=== PATIENT | male | born 1995 | race Hispanic/Latino ===

== ENCOUNTER 2018-01-31 23:48 | Emergency (ER) | payer SELFPAY ==
[2018-02-01 00:17] LABS: Absolute Lymphocytes (CBC) 3.2 K/uL (0.7-4.9); Absolute Neutrophil 8.3 K/uL (1.8-8.0); Basophils % 0.3 % (0-1.3); Eosinophils % 0.5 % (0-4.4); Hematocrit 47.7 % (39.6-49.0); Lymphocytes % 25.1 % (15.3-44.8); MCH 31.4 pg (27.0-35.0); MCV 91.6 fL (80-100); MPV 8.6 fL (7.6-11.3); Monocytes % 8.2 % (3.3-12.3)
[2018-02-01 00:23] LABS: Protime INR 1.1
[2018-02-01 00:37] LABS: ALT/SGPT 33 U/L (12-78); AST/SGOT 22 U/L (15-37); Albumin 4.3 g/dL (3.4-5.0); Alkaline Phosphatase 69 U/L (45-117); BUN Blood Urea Nitrogen 11 mg/dL (7-18); Bicarbonate 23 mmol/L (21-32); Bilirubin Direct 0.2 mg/dL (0-0.2); Bilirubin Total 0.9 mg/dL (0.2-1.0); CKMB Creatine Kinase MB 1.1 ng/mL (0.3-3.6); Creatine Phosphokinase 263 U/L (39-308); Glucose Level 81 mg/dL (74-106); Magnesium 1.9 mg/dL (1.8-2.4); NT PRO-BNP 21 pg/mL (<125); Potassium 3.7 mmol/L (3.5-5.1); Protein, Total 7.8 g/dL (6.4-8.2); Sodium Level 139 mmol/L (136-145)
[2018-02-01] MEDS ORDERED: ASPIRIN 81 MG CHEWABLE TABLET ONE (00:48)
--- NOTE | 2018-02-01 02:20 | EDPHYS ---
Physician Documentation [facility] Name: Juan Braswell Age: 22 yrs Sex: Male : 1995 Arrival Date: 01/31/2018 Time: 23:50 Bed 5 Private MD: ED Physician Alireza Neff HPI: 02/01 00:01 This 22 yrs old Male presents to ER via Law Enforcement with complaints of cp Chest Pain. 00:01 Onset: The symptoms/episode began/occurred today, episode \T\1700 today and then again cp \T\2200. Associated signs and symptoms: Pertinent negatives: abdominal pain, constipation, cough, diarrhea, fever, vomiting. Patient admits to last use of cocaine 3 days ago. Historical: - Allergies: 01/31 23:51 No Known Allergies; bp - Home Meds: 23:51 None [Active]; bp - PMHx: 23:51 None; bp - Immunization history:: Adult Immunizations up to date. - Social history:: Smoking status: Patient uses tobacco products, unknown amount. - Ebola Screening: : Patient negative for fever greater than or equal to 101.5 degrees Fahrenheit, and additional compatible Ebola Virus Disease symptoms Patient denies exposure to infectious person Patient denies travel to an Ebola-affected area in the 21 days before illness onset No symptoms or risks identified at this time. ROS: 02/01 00:05 Constitutional: Negative for body aches, chills, fever, poor PO intake. cp 00:05 Eyes: Negative for injury, pain, redness, and discharge. cp 00:05 ENT: Negative for drainage from ear(s), ear pain, sore throat, difficulty swallowing, difficulty handling secretions. 00:05 Cardiovascular: Positive for chest pain, of the left side of chest, Negative for edema, palpitations. 00:05 Respiratory: Negative for cough, shortness of breath, wheezing. 00:05 Abdomen/GI: Negative for abdominal pain, nausea, vomiting, and diarrhea, black/tarry stool, rectal bleeding. 00:05 Back: Negative for pain at rest, pain with movement, radiated pain. 00:05 Skin: Negative for cellulitis, rash. 00:05 Neuro: Negative for altered mental status, headache, weakness. 00:05 All other systems are negative. Exam: 00:10 Constitutional: The patient appears in no acute distress, alert, awake, cp non-diaphoretic, non-toxic, well developed, well nourished. 00:10 Head/Face: Normocephalic, atraumatic. Eyes: Pupils equal round and reactive to light, cp extra-ocular motions intact. Lids and lashes normal. Conjunctiva and sclera are non-icteric and not injected. Cornea within normal limits. Periorbital areas with no swelling, redness, or edema. ENT: Nares patent. No nasal discharge, no septal abnormalities noted. Tympanic membranes are normal and external auditory canals are clear. Oropharynx with no redness, swelling, or masses, exudates, or evidence of obstruction, uvula midline. Mucous membranes moist. Neck: Trachea midline, no thyromegaly or masses palpated, and no cervical lymphadenopathy. Supple, full range of motion without nuchal rigidity, or vertebral point tenderness. No Meningismus. Chest/axilla: Normal chest wall appearance and motion. Nontender with no deformity. No lesions are appreciated. Cardiovascular: Regular rate and rhythm with a normal S1 and S2. No gallops, murmurs, or rubs. Normal PMI, no JVD. No pulse deficits. Respiratory: Lungs have equal breath sounds bilaterally, clear to auscultation and percussion. No rales, rhonchi or wheezes noted. No increased work of breathing, no retractions or nasal flaring. Abdomen/GI: Soft, non-tender, with normal bowel sounds. No distension or tympany. No guarding or rebound. No evidence of tenderness throughout. Back: No spinal tenderness. No costovertebral tenderness. Full range of motion. Skin: Warm, dry with normal turgor. Normal color with no rashes, no lesions, and no evidence of cellulitis. Neuro: Awake and alert, GCS 15, oriented to person, place, time, and situation. Cranial nerves II-XII grossly intact. Motor strength 5/5 in all extremities. Sensory grossly intact. Cerebellar exam normal. Normal gait. 01:48 ECG was reviewed by the Attending Physician. cp Vital Signs: 01/31 23:51 BP 128 / 89; Pulse 70; Resp 14; Temp 98; Pulse Ox 98% ; Weight 106.59 kg; Height 6 ft. bp 1 in. (185.42 cm); 02/01 00:42 BP 117 / 73; Pulse 63; Resp 18; Pulse Ox 99% on R/A; tl2 01:29 BP 116 / 69; Pulse 62; Resp 16; Pulse Ox 98% on R/A; tl2 02:28 BP 108 / 65; Pulse 62; Resp 18; Pulse Ox 98% on R/A; tl2 01/31 23:51 Body Mass Index 31.00 (106.59 kg, 185.42 cm) bp MDM: 01/31 23:55 Patient medically screened. cp 02/01 00:30 Differential diagnosis: pneumonia, pulmonary embolism, cardiac arrythmia, electrolyte cp abnormality. 02:19 Data reviewed: vital signs, nurses notes, lab test result(s), EKG, radiologic studies, cp plain films. 02:19 Test interpretation: by ED physician or midlevel provider: ECG, plain radiologic cp studies. Counseling: I had a detailed discussion with the patient and/or guardian regarding: the historical points, exam findings, and any diagnostic results supporting the discharge/admit diagnosis, lab results, radiology results, to return to the emergency department if symptoms worsen or persist or if there are any questions or concerns that arise at home. Special discussion: Based on the patient's history, exam, and Dx evaluation, there is no indication for emergent intervention or inpatient Tx. It is understood by the patient/guardian that if the Sx's persist or worsen they need to return immediately for re-evaluation. ED course: VSS. Labs, EKG and chest xray reviewed and negative for acute findings. Will discharge into custody of law enforcement for continued monitoring. 02/01 00:01 Order name: Basic Metabolic Panel; Complete Time: 00:39 cp 02/01 00:01 Order name: CBC with Diff; Complete Time: 00:39 cp 02/01 00:39 Interpretation: Normal except: WBC 12.6. cp 02/01 00:01 Order name: Ckmb; Complete Time: 00:39 cp 02/01 00:01 Order name: CPK; Complete Time: 00:39 cp 02/01 00:01 Order name: LFT's; Complete Time: 00:39 cp 02/01 00:01 Order name: Magnesium; Complete Time: 00:39 cp 02/01 00:01 Order name: NT PRO-BNP; Complete Time: 00:39 cp 02/01 00:01 Order name: PT-INR; Complete Time: 00:39 cp 02/01 00:01 Order name: Ptt, Activated; Complete Time: 00:39 cp 02/01 00:01 Order name: Troponin (emerg Dept Use Only); Complete Time: 00:39 cp 08 00:39 Interpretation: Reviewed. 08 00:01 Order name: XRAY Chest (1 view) cp 02/01 00:01 Order name: EKG; Complete Time: 00:02 cp 02/01 01:34 Order name: Troponin I; Complete Time: 02:18 cp 02/01 02:18 Interpretation: TROP < 0.02; Reviewed. 08 00:01 Order name: Cardiac monitoring; Complete Time: 00:12 cp 02/01 00:01 Order name: EKG - Nurse/Tech; Complete Time: 00:11 cp 02/01 00:01 Order name: IV Saline Lock; Complete Time: 00:12 cp 08 00:01 Order name: Labs collected and sent; Complete Time: 00:12 cp 02/01 00:01 Order name: O2 Per Protocol; Complete Time: 00:12 cp 02/01 00:01 Order name: O2 Sat Monitoring; Complete Time: 00:12 cp 08 01:34 Order name: EKG; Complete Time: 01:35 cp 02/01 01:34 Order name: EKG - Nurse/Tech; Complete Time: 02:19 cp EC:48 Rate is 62 beats/min. Rhythm is regular. SC interval is normal. QRS interval is normal. cp QT interval is normal. Interpreted by me. Reviewed by me. Administered Medications: 00:45 Drug: Aspirin Chewable Tablet 324 mg Route: PO; tl2 02:20 Follow up: Response: No adverse reaction tl2 Disposition: 02/01/18 02:19 Discharged to Home. Impression: Other chest pain. - Condition is Stable. - Discharge Instructions: Nonspecific Chest Pain, Aspirin and Your Heart. - Medication Reconciliation Form, Thank You Letter, Antibiotic Education, Prescription Opioid Use form. - Follow up: Private Physician; When: 2 - 3 days; Reason: Recheck today's complaints. - Problem is new. - Symptoms have improved. Addendum: 02/02/2018 04:40 Co-signature as Attending Physician, Alireza Neff MD. g s Signatures: Dispatcher [employer] EDCalderon Tovar PA PA cp Katerin Mckeon, RN RN tl2 Alireza Neff MD MD gs Jesus Bertrand, RN RN bp Corrections: (The following items were deleted from the chart) 02/01 02:31 02:19 02/01/2018 02:19 Discharged to Home. Impression: Other chest pain. Condition is tl2 Stable. Forms are Medication Reconciliation Form, Thank You Letter, Antibiotic Education, Prescription Opioid Use. Follow up: Private Physician; When: 2 - 3 days; Reason: Recheck today's complaints. Problem is new. Symptoms have improved. cp
--- NOTE | 2018-02-01 02:20 | ER ---
Nurse's Notes [facility] Name: Juan Braswell Age: 22 yrs Sex: Male : 1995 Arrival Date: 01/31/2018 Time: 23:50 Bed 5 Private MD: Diagnosis: Other chest pain Presentation: 01/31 23:50 Presenting complaint: Patient states: CHEST PAINS. Transition of care: patient was not bp received from another setting of care. Onset of symptoms was January 31, 2018 at 17:00. Risk Assessment: Do you want to hurt yourself or someone else? Patient reports no desire to harm self or others. Initial Sepsis Screen: Does the patient meet any 2 criteria? No. Patient's initial sepsis screen is negative. Does the patient have a suspected source of infection? No. Patient's initial sepsis screen is negative. Care prior to arrival: None. 23:50 Acuity: GABO 3 bp 23:50 Method Of Arrival: Law Enforcement: [place] [employer] bp Triage Assessment: 23:51 General: Appears in no apparent distress. comfortable, Behavior is calm, cooperative, bp appropriate for age. Pain: Complains of pain in mid-sternal area. Cardiovascular: Reports chest pain, shortness of breath, Chest pain is described as mild, quality is sharp, is located in substernal area. Historical: - Allergies: 23:51 No Known Allergies; bp - Home Meds: 23:51 None [Active]; bp - PMHx: 23:51 None; bp - Immunization history:: Adult Immunizations up to date. - Social history:: Smoking status: Patient uses tobacco products, unknown amount. - Ebola Screening: : Patient negative for fever greater than or equal to 101.5 degrees Fahrenheit, and additional compatible Ebola Virus Disease symptoms Patient denies exposure to infectious person Patient denies travel to an Ebola-affected area in the 21 days before illness onset No symptoms or risks identified at this time. Screenin:54 Abuse screen: Denies threats or abuse. Denies injuries from another. Nutritional bp screening: No deficits noted. Tuberculosis screening: No symptoms or risk factors identified. Fall Risk None identified. Assessment: 23:53 General: SEE TRIAGE NOTE. 22YO HM P/W SUBSTERNAL CP SINCE 1700, INTERMITTENT AND SHARP. bp SEEN BY EMS AT ALF, TOLD "IRREGULAR HEARTBEAT". 02/01 00:42 Reassessment: Patient appears in no apparent distress at this time. No changes from tl2 previously documented assessment. Patient and/or family updated on plan of care and expected duration. Pain level reassessed. Patient is alert, oriented x 3, equal unlabored respirations, skin warm/dry/pink. 01:30 Reassessment: Patient appears in no apparent distress at this time. Patient and/or tl2 family updated on plan of care and expected duration. Pain level reassessed. Patient is alert, oriented x 3, equal unlabored respirations, skin warm/dry/pink. 02:28 Reassessment: Patient appears in no apparent distress at this time. Patient and/or tl2 family updated on plan of care and expected duration. Pain level reassessed. Patient is alert, oriented x 3, equal unlabored respirations, skin warm/dry/pink. Pt verbalized understanding of discharge instructions, need for follow up Patient states feeling better. Vital Signs: 01/31 23:51 BP 128 / 89; Pulse 70; Resp 14; Temp 98; Pulse Ox 98% ; Weight 106.59 kg; Height 6 ft. bp 1 in. (185.42 cm); 02/01 00:42 BP 117 / 73; Pulse 63; Resp 18; Pulse Ox 99% on R/A; tl2 01:29 BP 116 / 69; Pulse 62; Resp 16; Pulse Ox 98% on R/A; tl2 02:28 BP 108 / 65; Pulse 62; Resp 18; Pulse Ox 98% on R/A; tl2 01/31 23:51 Body Mass Index 31.00 (106.59 kg, 185.42 cm) bp Vitals: 00:42 Cardiac Rhythm Assessment Sinus rhythm. 2 ED Course: 01/31 23:50 Patient arrived in ED. bp 23:51 Triage completed. bp 23:51 Arm band placed on. bp 23:54 Patient has correct armband on for positive identification. Bed in low position. Call bp light in reach. Side rails up X2. Adult w/ patient. Pulse ox on. NIBP on. 23:55 Calderon Ramirez PA is PHCP. cp 23:55 Alireza Neff MD is Attending Physician. cp 02/01 00:10 Katerin Mckeon RN is Primary Nurse. tl2 00:10 Inserted saline lock: 20 gauge in right antecubital area, using aseptic technique. tl2 Blood collected. Patient maintains SpO2 saturation greater than 95% on room air. 00:13 X-ray completed. Portable x-ray completed in exam room. Patient tolerated procedure kp1 well. 00:15 XRAY Chest (1 view) In Process Unspecified. EDMS 02:28 No provider procedures requiring assistance completed. IV discontinued, intact, tl2 bleeding controlled, No redness/swelling at site. Pressure dressing applied. Administered Medications: 00:45 Drug: Aspirin Chewable Tablet 324 mg Route: PO; tl2 02:20 Follow up: Response: No adverse reaction tl2 Outcome: 02:19 Discharge ordered by MD. joshi 02:28 Discharged to Law Enforcement tl2 02:28 Condition: stable 02:28 Discharge instructions given to patient, Instructed on discharge instructions, follow up and referral plans. 02:31 Patient left the ED. tl2 Signatures: Dispatcher [employer] EDMD Calderon Ramirez PA PA cp Knox, Taylor, RN RN tl2 Samantha Lopes kp1 Jesus Bertrand, RN RN bp
--- NOTE | 2018-02-01 06:09 | EKG ---
Test Date: 2018-02-01 Test Time: 01:44:35 Hose Handler: SMITH MEASUREMENT RESULTS: Intervals: Rate: 62 PA: 164 QRSD: 94 QT: 426 QTc: 432 [place]: P: 34 PA: 164 QRS: 43 T: 21 INTERPRETIVE STATEMENTS: Normal sinus rhythm with sinus arrhythmia Normal ECG Compared to ECG 01/31/2018 23:56:24 No significant changes Electronically Signed On 02-01-18 06:08:45 CDT by Carlo Rodarte
--- NOTE | 2018-02-01 06:09 | EKG ---
Test Date: 2018-01-31 Test Time: 23:56:24 Litigation Services Manager: KESHAV MEASUREMENT RESULTS: Intervals: Rate: 68 RI: 156 QRSD: 96 QT: 420 QTc: 446 [place]: P: 38 RI: 156 QRS: 45 T: 23 INTERPRETIVE STATEMENTS: Normal sinus rhythm Normal ECG Compared to ECG 03/03/2016 23:47:01 Sinus arrhythmia no longer present Electronically Signed On 02-01-18 06:08:48 CDT by Carlo Rodarte
--- NOTE | 2018-02-01 08:36 | RAD REPORT ---
EXAM DESCRIPTION: RAD - Chest Single View - 02/01/2018 12:15 am CLINICAL HISTORY: Chest pain, shortness of breath COMPARISON: February 2016 TECHNIQUE: AP portable chest image was obtained 0001 hours . FINDINGS: Lungs are clear. Heart and vasculature are normal. No measurable pleural effusion and no p neumothorax. No gross bony abnormality seen. No acute aortic findings suspected. IMPRESSION: No acute cardiopulmonary process. No significant interval change.
== END 2018-02-01 02:31 | disposition home or self-care (01) ==
LOC: ER 23:48
DX: R07.89 Other chest pain (principal); F17.210 Nicotine dependence, cigarettes, uncomplicated; Z72.0 Tobacco use
CPT/HCPCS: 36415; 71045; 80048; 80076; 82550; 82553; 83735; 83880; 84484; 85025; 85610; 85730; 93005; 99284